=== PATIENT | female | born 1975 ===

== ENCOUNTER 2018-04-04 15:19 | Inpatient (IN) | payer MEDICAID ==
[2018-04-04] MEDS ORDERED: Sodium Chloride 0.9% 1,000 ML IV STA (17:04)
--- NOTE | 2018-04-04 17:05 | C.PDOC ---
History Of Present Illness Patient c/o painful left buttock abscess for the last 3 days. patient sts she had fever this morning. Also patient reports that she has DM that not being controlled for the last few days despite her taking all medications every day. Time Seen by Provider: 04/04/18 16:50 Chief Complaint (Nursing): Abnormal Skin Integrity Past Medical History Reviewed: Historical Data, Nursing Documentation, Vital Signs Vital Signs: Last Vital Signs Temp 98.4 F 04/04/18 16:41 Pulse 105 H 04/04/18 16:41 Resp 20 04/04/18 16:41 BP 145/93 H 04/04/18 16:41 Pulse Ox 97 04/04/18 17:05 - Medical History PMH: Diabetes, HTN Family History: States: No Known Family Hx - Social History Hx Alcohol Use: No Hx Substance Use: No - Immunization History Hx Tetanus Toxoid Vaccination: Yes Hx Influenza Vaccination: Yes Hx Pneumococcal Vaccination: Yes Review Of Systems Except As Marked, All Systems Reviewed And Found Negative. Physical Exam - Physical Exam Appears: Well, Non-toxic, Other (uncomfortable) Skin: Normal Color, Warm, Dry Head: Atraumatic, Normacephalic Eye(s): bilateral: Normal Inspection Neck: Normal ROM Chest: Symmetrical, No Deformity, No Tenderness Cardiovascular: Rhythm Regular Respiratory: Normal Breath Sounds, No Rales, No Rhonchi, No Wheezing Gastrointestinal/Abdominal: Normal Exam, Bowel Sounds, Soft, No Tenderness Rectal: Tenderness (left inner buttock with draining abscess, purulent d/c seen) ED Course And Treatment - Laboratory Results Result Diagrams: 04/04/18 17:35 04/04/18 18:00 O2 Sat by Pulse Oximetry: 97 Progress Note: Wound was cultured. Patient was treated with Zosyn IV. case was d /w who accepted patient to [facility]. As per 's request, was called for surgery consult. Spoke with who requests patient to be NPO after midnight for surgical procedure. Disposition - Disposition Disposition: HOSPITALIZED Disposition Time: 21:46 Condition: FAIR - Clinical Impression Clinical Impression: Abscess of buttock, left Decision To Admit - Pt Status Changed To: Hospital Disposition Of: Inpatient - Admit Certification Admit to Inpatient:: After my assessment, the patient will require hospitalization for at least two midnights. This is because of the severity of symptoms shown, intensity of services needed, and/or the medical risk in this patient being treated as an outpatient. - InPatient: Physician Admission Certification: I certify that this patient requires 2 or more midnights of care for the following reason:: Patient will need IV antibiotics abnd surgical treatment in OR. - . Bed Request Type: Regular Admitting Physician: Marco Worrell Patient Diagnosis: Abscess of buttock, left
[2018-04-04 17:43] LABS: BASO # 0.2 K/uL (0.0-0.2); BASO % 1.1 % (0.0-2.0); EOS # 0.1 K/uL (0.0-0.7); EOS % 0.4 % (0.0-4.0); HEMOGLOBIN 11.4 g/dL (11.0-16.0); LYMPH # 3.5 K/uL (1.0-4.3); LYMPH % 25.4 % (20.0-40.0); MEAN CELL VOLUME 69.6 fL (81.0-99.0); MEAN CORPUSCULAR HEMOGLOBIN 22.2 pg (27.0-31.0); MEAN CORPUSCULAR HGB CONC 31.9 g/dL (33.0-37.0); MEAN PLATELET VOLUME 8.4 fL (7.2-11.7); MONO % 7.3 % (0.0-10.0); NEUT # 9.1 K/uL (1.8-7.0); NEUT % 65.8 % (50.0-75.0); RBC 5.14 Mil/uL (3.80-5.20); RED CELL DISTRIBUTION WIDTH 14.8 % (11.5-14.5); WHITE BLOOD COUNT 13.8 K/uL (4.8-10.8)
[2018-04-04 17:47] LABS: HCG,QUALITATIVE URINE NEGATIVE (NEGATIVE); SQUAMOUS EPITHIAL 5 /hpf (0-5); URINE BACTERIA OCC (<OCC); URINE BILIRUBIN NEGATIVE (NEGATIVE); URINE BLOOD 3+ (NEGATIVE); URINE CLARITY Clear (Clear); URINE COLOR Yellow (YELLOW); URINE GLUCOSE (UA) 3+ mg/dL (Normal); URINE LEUKOCYTE ESTERASE NEG Leu/uL (Negative); URINE PROTEIN 1+ mg/dL (NEGATIVE); URINE UROBILINOGEN NORMAL mg/dL (0.2-1.0)
[2018-04-04] MEDS ORDERED: Sodium Chloride 0.9% 1,000 ML ONE (17:48)
[2018-04-04 18:26] LABS: ALBUMIN 3.9 g/dL (3.5-5.0); ALT/SGPT 42 U/L (9-52); AST/SGOT 30 U/L (14-36); BLOOD UREA NITROGEN 7 mg/dL (7-17); CALCIUM 9.7 mg/dl (8.6-10.4); GFR AFRICAN-AMERICAN > 60; GFR NON-AFRICAN AMERICAN > 60
[2018-04-04] MEDS ORDERED: Piperacillin/Tazobact 3.375 gm 100 ML IV STA (19:43)
[2018-04-04] MEDS ORDERED: Piperacillin/Tazobact 3.375 gm 100 ML IVPB ONE (19:51)
[2018-04-04] MEDS ORDERED: (Novolin R) Insulin Human Regular 100 units/ml vial ONE (22:24)
[2018-04-04] MEDS: (Novolin R) Insulin Human Regular 100 units/ml vial SC SCH (22:25)
[2018-04-04 22:37] LABS: PROTHROMBIN TIME 11.2 SECONDS (9.7-12.2)
[2018-04-04] MEDS: Piperacillin/Tazobact 3.375 GM in Sodium Chloride 0.9% 100 ML IVPB SCH (23:56)
[2018-04-05] MEDS: Piperacillin/Tazobact 3.375 GM in Sodium Chloride 0.9% 100 ML IVPB SCH ×4 (04:08→21:42)
[2018-04-05] MEDS: (Novolin R) Insulin Human Regular 100 units/ml vial SC SCH ×4 (08:00→21:37)
--- NOTE | 2018-04-05 08:45 | CP.PCM.HP ---
History of Present Illness - History of Present Illness History of Present Illness: Chief Complaint : Abnormal Skin Integrity History Of Present Illness Patient c/o painful left buttock abscess for the last 3 days. patient sts she had fever this morning. Also patient reports that she has DM that not being controlled for the last few days despite her taking all medications every day. Present on Admission - Present on Admission Any Indicators Present on Admission: No Past Patient History - Past Social History Smoking Status: Never Smoked - CARDIAC Hx Hypertension: Yes - PULMONARY Hx Respiratory Disorders: No - NEUROLOGICAL Hx Neurological Disorder: No - HEENT Hx HEENT Problems: No - RENAL Hx Chronic Kidney Disease: No - ENDOCRINE/METABOLIC Hx Endocrine Disorders: Yes Hx Diabetes Mellitus Type 2: Yes - HEMATOLOGICAL/ONCOLOGICAL Hx Blood Disorders: No - INTEGUMENTARY Hx Dermatological Problems: No - MUSCULOSKELETAL/RHEUMATOLOGICAL Hx Falls: No - GASTROINTESTINAL Hx Gastrointestinal Disorders: No - PSYCHIATRIC Hx Substance Use: No - SURGICAL HISTORY Hx Surgeries: Yes Hx Section: Yes (x2) Hx Tubal Ligation: Yes - ANESTHESIA Hx Anesthesia: Yes Hx Anesthesia Reactions: No Hx Malignant Hyperthermia: No Has any member of the family had a problem w/ anesthesia?: No Meds Allergies/Adverse Reactions: Allergies Allergy/AdvReac Type Severity Reaction Status Date / Time No Known Allergies Allergy Verified 04/04/18 16:44 Results - Vital Signs Recent Vital Signs: Last Vital Signs Temp 98.5 F 04/05/18 08:00 Pulse 70 04/05/18 08:00 Resp 20 04/05/18 08:00 BP 112/75 04/05/18 08:00 Pulse Ox 98 04/05/18 08:00 - Labs Result Diagrams: 04/04/18 17:35 04/04/18 18:00 Labs: Laboratory Results - last 24 hr 04/04/18 04/04/18 04/04/18 17:35 17:35 18:00 WBC 13.8 H RBC 5.14 Hgb 11.4 Hct 35.8 MCV 69.6 L MCH 22.2 L MCHC 31.9 L RDW 14.8 H Plt Count 376 MPV 8.4 Neut % (Auto) 65.8 Lymph % (Auto) 25.4 [place] % (Auto) 7.3 Eos % (Auto) 0.4 Baso % (Auto) 1.1 Neut # (Auto) 9.1 H Lymph # (Auto) 3.5 [place] # (Auto) 1.0 H Eos # (Auto) 0.1 Baso # (Auto) 0.2 PT INR APTT Sodium 138 Potassium 3.9 Chloride 100 Carbon Dioxide 28 Anion Gap 14 BUN 7 Creatinine 0.6 L Est GFR ( Amer) > 60 Est GFR (Non-Af Amer) > 60 POC Glucose (mg/dL) Random Glucose 215 H Calcium 9.7 Total Bilirubin 0.6 AST 30 ALT 42 Alkaline Phosphatase 95 Total Protein 7.9 Albumin 3.9 Globulin 4.0 H Albumin/Globulin Ratio 1.0 Urine Color Yellow Urine Clarity Clear Urine pH 5.0 Ur Specific [place] 1.039 H Urine Protein 1+ H Urine Glucose (UA) 3+ H Urine Ketones Negative Urine Blood 3+ H Urine Nitrate Negative Urine Bilirubin Negative Urine Urobilinogen Normal Ur Leukocyte Esterase Neg Urine WBC (Auto) 5 Urine RBC (Auto) 116 H Ur Squamous Epith Cells 5 Ur Transition Epith Cell < 1 Urine Bacteria Occ H Urine HCG, Qual Negative 04/04/18 04/04/18 04/05/18 22:06 22:23 04:31 WBC RBC Hgb Hct MCV MCH MCHC RDW Plt Count MPV Neut % (Auto) Lymph % (Auto) [place] % (Auto) Eos % (Auto) Baso % (Auto) Neut # (Auto) Lymph # (Auto) [place] # (Auto) Eos # (Auto) Baso # (Auto) PT 11.2 INR 1.0 APTT 28 Sodium Potassium Chloride Carbon Dioxide Anion Gap BUN Creatinine Est GFR ( Amer) Est GFR (Non-Af Amer) POC Glucose (mg/dL) 295 H Random Glucose Calcium Total Bilirubin AST ALT Alkaline Phosphatase Total Protein Albumin Globulin Albumin/Globulin Ratio Urine Color Urine Clarity Urine pH Ur Specific [place] Urine Protein Urine Glucose (UA) Urine Ketones Urine Blood Urine Nitrate Urine Bilirubin Urine Urobilinogen Ur Leukocyte Esterase Urine WBC (Auto) Urine RBC (Auto) Ur Squamous Epith Cells Ur Transition Epith Cell Urine Bacteria Urine HCG, Qual Negative 04/05/18 07:29 WBC RBC Hgb Hct MCV MCH MCHC RDW Plt Count MPV Neut % (Auto) Lymph % (Auto) [place] % (Auto) Eos % (Auto) Baso % (Auto) Neut # (Auto) Lymph # (Auto) [place] # (Auto) Eos # (Auto) Baso # (Auto) PT INR APTT Sodium Potassium Chloride Carbon Dioxide Anion Gap BUN Creatinine Est GFR ( Amer) Est GFR (Non-Af Amer) POC Glucose (mg/dL) 238 H Random Glucose Calcium Total Bilirubin AST ALT Alkaline Phosphatase Total Protein Albumin Globulin Albumin/Globulin Ratio Urine Color Urine Clarity Urine pH Ur Specific [place] Urine Protein Urine Glucose (UA) Urine Ketones Urine Blood Urine Nitrate Urine Bilirubin Urine Urobilinogen Ur Leukocyte Esterase Urine WBC (Auto) Urine RBC (Auto) Ur Squamous Epith Cells Ur Transition Epith Cell Urine Bacteria Urine HCG, Qual
[2018-04-05] MEDS ORDERED: Propofol 10 mg/ml Inj (20 ML) ONE (15:55)
[2018-04-05] MEDS ORDERED: Midazolam 2 MG/2 ML VIAL ONE (15:55)
[2018-04-05] MEDS ORDERED: Lidocaine Hydrochloride 5 ML INJ ONE (16:00)
[2018-04-05] MEDS ORDERED: Piperacillin/Tazobact 3.375 gm 100 ML IVPB ONE (16:15)
[2018-04-05] MEDS: HYDROmorphone 0.5 mg/0.5 ml ISec IVP PRN ×2 (17:13→17:22)
[2018-04-05] MEDS ORDERED: HYDROmorphone 0.5 mg/0.5 ml ISec ONE (17:13)
--- NOTE | 2018-04-06 00:27 | CP.PCM.PN ---
Subjective - Date & Time of Evaluation Date of Evaluation: 04/05/18 Time of Evaluation: 20:00 - Subjective Subjective: Pt who is known diabetic, non complaint with diet, medications, pt came in with left buttock abscess, pt is admitted for further evalaution and medical managmnet, she is having fever and in mild distress Objective - Vital Signs/Intake and Output Vital Signs (last 24 hours): Temp Pulse Resp BP Pulse Ox 98 F 79 20 139/86 97 04/05/18 18:20 04/05/18 18:20 04/05/18 18:20 04/05/18 18:20 04/05/18 18:20 Intake and Output: 04/05/18 04/06/18 18:59 06:59 Intake Total 650 Balance 650 - Medications Medications: Current Medications Enalapril Maleate (Vasotec) 5 mg PO DAILY [facility] Last Admin: 04/05/18 10:06 Dose: 5 mg Heparin Sodium (Porcine) (Heparin) 5,000 units SC Q8 [facility] Last Admin: 04/05/18 21:50 Dose: 5,000 units Piperacillin Sod/Tazobactam (Sod 3.375 gm/ Sodium Chloride) 100 mls @ 100 mls/ hr IVPB Q6H [facility] PRN Reason: Protocol Last Admin: 04/05/18 21:42 Dose: 100 mls/hr Insulin Human Regular (Novolin R) 0 unit SC ACHS [facility] PRN Reason: Protocol Last Admin: 04/05/18 21:37 Dose: Not Given Metformin HCl (Glucophage) 1,000 mg PO BID [facility] Last Admin: 04/05/18 19:01 Dose: Not Given - Labs Labs: 04/04/18 17:35 04/04/18 18:00 PT 11.2 SECONDS (9.7-12.2) 04/04/18 22:23 INR 1.0 04/04/18 22:23 APTT 28 SECONDS (21-34) 04/04/18 22:23 - Constitutional Appears: No Acute Distress - Head Exam Head Exam: ATRAUMATIC, NORMAL INSPECTION, NORMOCEPHALIC - Eye Exam Eye Exam: EOMI, Normal appearance, PERRL Pupil Exam: NORMAL ACCOMODATION, PERRL - Respiratory Exam Respiratory Exam: Clear to Ausculation Bilateral, NORMAL BREATHING PATTERN - Cardiovascular Exam Cardiovascular Exam: REGULAR RHYTHM, +S1, +S2. absent: Murmur - GI/Abdominal Exam GI & Abdominal Exam: Soft, Normal Bowel Sounds. absent: Tenderness - Rectal Exam Rectal Exam: Deferred - Extremities Exam Additional comments: abscess left buttock Assessment and Plan (1) Type 2 diabetes mellitus Status: Acute (2) Dehydration Status: Acute (3) Abscess of buttock, left Status: Acute
--- NOTE | 2018-04-06 02:59 | OP ---
PROCEDURE DATE: 04/04/2018 PREOPERATIVE DIAGNOSIS: Rectal and pelvic abscess. POSTOPERATIVE DIAGNOSIS: Rectal and pelvic abscess. PROCEDURE PERFORMED: Incision and drainage of rectal and pelvic abscess. SURGEON: Tony Eastman MD TYPE OF ANESTHESIA: General. BLOOD LOSS: 30 mL. POSTOPERATIVE CONDITION: Stable. INDICATIONS FOR SURGERY: This is a 43-year-old female who presents with a large rectal abscess with possible fistula, taken to the operating room. GROSS FINDINGS: The patient had both rectal and pelvic abscess. The abscess extended to the supralevator space. 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 DESCRIPTION OF THE PROCEDURE: She was taken to the operating room, general anesthesia was administered, and the rectal area was prepped and draped. A rectal probe was passed to the fistulous cavity. Pus was drained. Then, it was passed into the posterior aspect of the anal canal. The overlying tissue was divided. The rectal abscess was drained. The rectal abscess was traced cephalad to the supralevator space, and the supralevator collection was also drained. The wound was irrigated with copious amounts of saline solution. A small rectal polyp is also excised. The patient tolerated the procedure well, returned to the recovery room in stable condition. Tony Eastman MD
[2018-04-06] MEDS: Piperacillin/Tazobact 3.375 GM in Sodium Chloride 0.9% 100 ML IVPB SCH ×4 (05:00→22:00)
[2018-04-06] MEDS: (Novolin R) Insulin Human Regular 100 units/ml vial SC SCH ×4 (08:30→21:54)
[2018-04-06] MEDS ORDERED: Propofol 10 mg/ml Inj (20 ML) ONE (13:47)
[2018-04-06] MEDS ORDERED: Midazolam 2 MG/2 ML VIAL ONE (13:47)
[2018-04-06] MEDS ORDERED: HYDROmorphone 0.5 mg/0.5 ml ISec IVP PRN (14:33)
[2018-04-06] MEDS: Lactated Ringer's 1,000 ML IV SCH (15:00)
[2018-04-06] MEDS ORDERED: Lactated Ringer's 1,000 ML IV ONE (15:15)
--- NOTE | 2018-04-06 23:38 | CP.PCM.PN ---
Subjective - Date & Time of Evaluation Date of Evaluation: 04/06/18 Time of Evaluation: 19:35 - Subjective Subjective: Pt seen and examined at bedside Objective - Vital Signs/Intake and Output Vital Signs (last 24 hours): Temp Pulse Resp BP Pulse Ox 97.9 F 78 20 150/91 H 96 04/06/18 16:15 04/06/18 16:15 04/06/18 16:15 04/06/18 16:15 04/06/18 16:15 Intake and Output: 04/06/18 04/07/18 18:59 06:59 Intake Total 900 1000 Balance 900 1000 - Medications Medications: Current Medications Enalapril Maleate (Vasotec) 5 mg PO DAILY [facility] Last Admin: 04/06/18 11:00 Dose: 5 mg Heparin Sodium (Porcine) (Heparin) 5,000 units SC Q8 [facility] Last Admin: 04/06/18 22:00 Dose: 5,000 units Piperacillin Sod/Tazobactam (Sod 3.375 gm/ Sodium Chloride) 100 mls @ 100 mls/ hr IVPB Q6H [facility] PRN Reason: Protocol Last Admin: 04/06/18 22:00 Dose: 100 mls/hr Lactated Ringer's (Lactated Ringer's) 1,000 mls @ 100 mls/hr IV .Q10H [facility] Last Admin: 04/06/18 15:00 Dose: Not Given Insulin Human Regular (Novolin R) 0 unit SC ACHS [facility] PRN Reason: Protocol Last Admin: 04/06/18 21:54 Dose: Not Given Metformin HCl (Glucophage) 1,000 mg PO BID [facility] Last Admin: 04/06/18 18:24 Dose: Not Given - Labs Labs: 04/04/18 17:35 04/04/18 18:00 PT 11.2 SECONDS (9.7-12.2) 04/04/18 22:23 INR 1.0 04/04/18 22:23 APTT 28 SECONDS (21-34) 04/04/18 22:23 Assessment and Plan (1) Type 2 diabetes mellitus Status: Acute (2) Dehydration Status: Acute (3) Abscess of buttock, left Status: Acute
--- NOTE | 2018-04-06 23:57 | OP ---
PROCEDURE DATE: 04/06/2018 PREOPERATIVE DIAGNOSIS: Large rectal and pelvic wound. POSTOPERATIVE DIAGNOSIS: Large rectal and pelvic wound. PROCEDURE PERFORMED: Change of packing under anesthesia with debridement. Re-drainage of pelvic abscess. SURGEON: Tony Eastman MD ANESTHESIA: General. BLOOD LOSS: 20 mL. POSTOPERATIVE CONDITION: Stable. INDICATIONS FOR SURGERY: This is a 43-year-old female, taken back for stage procedure. Yesterday, underwent a fistulotomy with drainage of a large rectal and pelvic abscess. She will now undergo change of packing under anesthesia and debridement, re-drainage procedure. DESCRIPTION OF PROCEDURE: The patient was taken to the operating room, general anesthesia was administered. She was placed in lithotomy position. The previous packing was removed, and the area was prepped and draped. The area was re-debrided and remaining pelvic collections were drained and cultured. Bleeding was controlled using the Bovie. Larger blood vessels were repaired. The wound was pulse irrigated with saline solution. Partial tissue flap closure was performed. The central portion of wound was packed open with wet-saline gauze. A pelvic phlegmon associated with the wound was also excised measuring 3 cm. The patient tolerated the procedure well. Returned to recovery room in stable condition. Tony Eastman MD
[2018-04-07] MEDS: Lactated Ringer's 1,000 ML IV SCH ×4 (03:38→20:06)
[2018-04-07] MEDS: Piperacillin/Tazobact 3.375 GM in Sodium Chloride 0.9% 100 ML IVPB SCH ×4 (04:40→21:40)
[2018-04-07] MEDS: (Novolin R) Insulin Human Regular 100 units/ml vial SC SCH ×5 (07:41→21:30)
[2018-04-07 08:38] LABS: BASO % 0.3 % (0.0-2.0); EOS # 0.1 K/uL (0.0-0.7); EOS % 0.7 % (0.0-4.0); HEMOGLOBIN 9.5 g/dL (11.0-16.0); LYMPH # 3.1 K/uL (1.0-4.3); LYMPH % 37.6 % (20.0-40.0); MEAN CORPUSCULAR HEMOGLOBIN 22.1 pg (27.0-31.0); MEAN CORPUSCULAR HGB CONC 31.6 g/dL (33.0-37.0); MEAN PLATELET VOLUME 8.5 fL (7.2-11.7); MONO # 0.7 K/uL (0.0-0.8); MONO % 8.6 % (0.0-10.0); NEUT # 4.4 K/uL (1.8-7.0); NEUT % 52.8 % (50.0-75.0); NRBC % 0.1 % (0.0-2.0); RBC 4.32 Mil/uL (3.80-5.20); RED CELL DISTRIBUTION WIDTH 14.5 % (11.5-14.5); WHITE BLOOD COUNT 8.4 K/uL (4.8-10.8)
[2018-04-07 08:49] LABS: BLOOD UREA NITROGEN 6 mg/dL (7-17); CALCIUM 8.5 mg/dl (8.6-10.4); GFR AFRICAN-AMERICAN > 60; GFR NON-AFRICAN AMERICAN > 60
[2018-04-07] MEDS ORDERED: Midazolam 2 MG/2 ML VIAL ONE (13:57)
[2018-04-07] MEDS ORDERED: Propofol 10 mg/ml Inj (20 ML) ONE (13:57)
[2018-04-07] MEDS ORDERED: Lidocaine Hydrochloride 5 ML INJ ONE (14:00)
[2018-04-07] MEDS ORDERED: Bacitracin Ointment 30 GM TUBE ONE (14:44)
[2018-04-07] MEDS: HYDROmorphone 0.5 mg/0.5 ml ISec IVP PRN ×2 (15:18→15:31)
[2018-04-07] MEDS ORDERED: Lactated Ringer's 1,000 ML IV ONE (16:00)
[2018-04-08 02:27] VITALS: PULSE 86; RESP 20
[2018-04-08] MEDS: Piperacillin/Tazobact 3.375 GM in Sodium Chloride 0.9% 100 ML IVPB SCH ×2 (03:41→11:30)
--- NOTE | 2018-04-08 05:24 | CP.PCM.PN ---
Subjective - Date & Time of Evaluation Date of Evaluation: 04/07/18 Time of Evaluation: 19:45 - Subjective Subjective: Pt seen and examined at bedside Objective - Vital Signs/Intake and Output Vital Signs (last 24 hours): Temp Pulse Resp BP Pulse Ox 99.2 F 86 20 123/75 97 04/08/18 00:00 04/08/18 00:00 04/08/18 00:00 04/08/18 00:00 04/08/18 00:00 Intake and Output: 04/07/18 04/08/18 18:59 06:59 Intake Total 1500 200 Balance 1500 200 - Medications Medications: Current Medications Enalapril Maleate (Vasotec) 5 mg PO DAILY [facility] Last Admin: 04/07/18 10:06 Dose: 5 mg Piperacillin Sod/Tazobactam (Sod 3.375 gm/ Sodium Chloride) 100 mls @ 100 mls/ hr IVPB Q6H [facility] PRN Reason: Protocol Last Admin: 04/08/18 03:41 Dose: 100 mls/hr Lactated Ringer's (Lactated Ringer's) 1,000 mls @ 100 mls/hr IV .Q10H [facility] Last Admin: 04/07/18 20:06 Dose: Not Given Insulin Human Regular (Novolin R) 0 unit SC ACHS [facility] PRN Reason: Protocol Last Admin: 04/07/18 21:30 Dose: Not Given Metformin HCl (Glucophage) 1,000 mg PO BID [facility] Last Admin: 04/07/18 17:11 Dose: 1,000 mg - Labs Labs: 04/07/18 08:25 04/07/18 08:25 PT 11.2 SECONDS (9.7-12.2) 04/04/18 22:23 INR 1.0 04/04/18 22:23 APTT 28 SECONDS (21-34) 04/04/18 22:23 Assessment and Plan (1) Type 2 diabetes mellitus Status: Acute (2) Dehydration Status: Acute (3) Abscess of buttock, left Status: Acute
[2018-04-08] MEDS: Lactated Ringer's 1,000 ML IV SCH (06:39)
[2018-04-08 07:45] VITALS: BP 135/85; TEMP 98.9; O2SAT 96
[2018-04-08] MEDS: (Novolin R) Insulin Human Regular 100 units/ml vial SC SCH ×2 (07:57→12:30)
--- NOTE | 2018-04-09 03:50 | CP.PCM.DIS ---
Provider - Provider Date of Admission: 04/04/18 19:44 Attending physician: Marco Worrell MD Time Spent in preparation of Discharge (in minutes): 45 Diagnosis - Discharge Diagnosis (1) Type 2 diabetes mellitus Status: Acute (2) Dehydration Status: Acute (3) Abscess of buttock, left Status: Acute Hospital Course - Lab Results Lab Results: Micro Results 04/07/18 14:49 Rectum Gram Stain - Final 04/07/18 14:49 Rectum Wound Culture - Preliminary Gram Negative José Miguel 04/05/18 17:41 Abscess - Perirectal Gram Stain - Final 04/05/18 17:41 Abscess - Perirectal Wound Culture - Final Escherichia Coli Beta Hemolytic Strep Group B 04/04/18 17:35 Abscess - Buttocks Gram Stain - Final 04/04/18 17:35 Abscess - Buttocks Wound Culture - Final Beta Hemolytic Strep Group B Most Recent Lab Values WBC 8.4 K/uL (4.8-10.8) 04/07/18 08:25 RBC 4.32 Mil/uL (3.80-5.20) 04/07/18 08:25 Hgb 9.5 g/dL (11.0-16.0) L 04/07/18 08:25 Hct 30.2 % (34.0-47.0) L 04/07/18 08:25 MCV 70.0 fL (81.0-99.0) L 04/07/18 08:25 MCH 22.1 pg (27.0-31.0) L 04/07/18 08:25 MCHC 31.6 g/dL (33.0-37.0) L 04/07/18 08:25 RDW 14.5 % (11.5-14.5) 04/07/18 08:25 Plt Count 313 K/uL (130-400) 04/07/18 08:25 MPV 8.5 fL (7.2-11.7) 04/07/18 08:25 Neut % (Auto) 52.8 % (50.0-75.0) 04/07/18 08:25 Lymph % (Auto) 37.6 % (20.0-40.0) 04/07/18 08:25 [place] % (Auto) 8.6 % (0.0-10.0) 04/07/18 08:25 Eos % (Auto) 0.7 % (0.0-4.0) 04/07/18 08:25 Baso % (Auto) 0.3 % (0.0-2.0) 04/07/18 08:25 Neut # (Auto) 4.4 K/uL (1.8-7.0) 04/07/18 08:25 Lymph # (Auto) 3.1 K/uL (1.0-4.3) 04/07/18 08:25 [place] # (Auto) 0.7 K/uL (0.0-0.8) 04/07/18 08:25 Eos # (Auto) 0.1 K/uL (0.0-0.7) 04/07/18 08:25 Baso # (Auto) 0.0 K/uL (0.0-0.2) 04/07/18 08:25 PT 11.2 SECONDS (9.7-12.2) 04/04/18 22:23 INR 1.0 04/04/18 22:23 APTT 28 SECONDS (21-34) 04/04/18 22:23 Sodium 140 mmol/L (132-148) 04/07/18 08:25 Potassium 3.9 mmol/L (3.6-5.2) 04/07/18 08:25 Chloride 104 mmol/L (98-107) 04/07/18 08:25 Carbon Dioxide 26 mmol/L (22-30) 04/07/18 08:25 Anion Gap 14 (10-20) 04/07/18 08:25 BUN 6 mg/dL (7-17) L 04/07/18 08:25 Creatinine 0.6 mg/dL (0.7-1.2) L 04/07/18 08:25 Est GFR ( Amer) > 60 04/07/18 08:25 Est GFR (Non-Af Amer) > 60 04/07/18 08:25 POC Glucose (mg/dL) 298 mg/dL (65-110) H 04/08/18 11:39 Random Glucose 212 mg/dL (65-105) H 04/07/18 08:25 Calcium 8.5 mg/dl (8.6-10.4) L 04/07/18 08:25 Total Bilirubin 0.6 mg/dL (0.2-1.3) 04/04/18 18:00 AST 30 U/L (14-36) 04/04/18 18:00 ALT 42 U/L (9-52) 04/04/18 18:00 Alkaline Phosphatase 95 U/L (38-126) 04/04/18 18:00 Total Protein 7.9 g/dL (6.3-8.3) 04/04/18 18:00 Albumin 3.9 g/dL (3.5-5.0) 04/04/18 18:00 Globulin 4.0 gm/dL (2.2-3.9) H 04/04/18 18:00 Albumin/Globulin Ratio 1.0 (1.0-2.1) 04/04/18 18:00 Beta HCG, Quant < 2.39 mIU/ML 04/07/18 14:02 Urine Color Yellow (YELLOW) 04/04/18 17:35 Urine Clarity Clear (Clear) 04/04/18 17:35 Urine pH 5.0 (5.0-8.0) 04/04/18 17:35 Ur Specific [place] 1.039 (1.003-1.030) H 04/04/18 17:35 Urine Protein 1+ mg/dL (NEGATIVE) H 04/04/18 17:35 Urine Glucose (UA) 3+ mg/dL (Normal) H 04/04/18 17:35 Urine Ketones Negative mg/dL (NEGATIVE) 04/04/18 17:35 Urine Blood 3+ (NEGATIVE) H 04/04/18 17:35 Urine Nitrate Negative (NEGATIVE) 04/04/18 17:35 Urine Bilirubin Negative (NEGATIVE) 04/04/18 17:35 Urine Urobilinogen Normal mg/dL (0.2-1.0) 04/04/18 17:35 Ur Leukocyte Esterase Neg [place]/uL (Negative) 04/04/18 17:35 Urine WBC (Auto) 5 /hpf (0-5) 04/04/18 17:35 Urine RBC (Auto) 116 /hpf (0-3) H 04/04/18 17:35 Ur Squamous Epith Cells 5 /hpf (0-5) 04/04/18 17:35 Ur Transition Epith Cell < 1 /hpf (0-3) 04/04/18 17:35 Urine Bacteria Occ (<OCC) H 04/04/18 17:35 Urine HCG, Qual Negative (NEGATIVE) 04/05/18 04:31 - Hospital Course Hospital Course: PT SEEN AND EXAMINED AT BEDSIDE, IS STABLE FOR DISCHARGE, ADVISED TO FOLLOW UP OUT PATIENT IN 1 WEEK Discharge Exam - Head Exam Head Exam: ATRAUMATIC, NORMAL INSPECTION, NORMOCEPHALIC - Eye Exam Eye Exam: EOMI, Normal appearance, PERRL Pupil Exam: NORMAL ACCOMODATION, PERRL - ENT Exam ENT Exam: Mucous Membranes Moist - Respiratory Exam Respiratory Exam: Decreased Breath Sounds, Rales - Cardiovascular Exam Cardiovascular Exam: REGULAR RHYTHM, +S1, +S2 - GI/Abdominal Exam GI & Abdominal Exam: Normal Bowel Sounds Discharge Plan - Follow Up Plan Condition: FAIR Disposition: HOME/ ROUTINE Instructions: Abscess Incision and Drainage (DC), Abscess (GEN) Referrals: Tony Eastman MD [Staff Provider] -
== END 2018-04-08 14:00 | disposition home or self-care (01) | DRG 146 ==
LOC: C.ER 15:19 → C.9E 19:44 → C.3T 22:52
PROVIDERS: ADMIT Internal Medicine; ATTEND Internal Medicine
PROC: 0D9P0ZZ Drainage of Rectum, Open Approach (ICD-10-PCS; 2018-04-05)
PROC: 0DBP0ZZ Excision of Rectum, Open Approach (ICD-10-PCS; principal; 2018-04-05 16:45)
PROC: 0H98XZZ Drainage of Buttock Skin, External Approach (ICD-10-PCS; 2018-04-06)
DX: K61.1 Rectal abscess (principal); L02.31 Cutaneous abscess of buttock; E86.0 Dehydration; E11.9 Type 2 diabetes mellitus without complications; I10 Essential (primary) hypertension; K62.1 Rectal polyp; Z98.51 Tubal ligation status